=== PATIENT | female | born 1980 | race Caucasian/White ===

== ENCOUNTER 2018-01-10 12:49 | Emergency (ER) | payer OTHER ==
[2018-01-10 13:03] VITALS: RESP 18
[2018-01-10] MEDS ORDERED: DIPH,PERTUS(ACELL)TETVAC-LF 0.5 ML VIAL IM ONE (13:38)
[2018-01-10] MEDS ORDERED: RABIES VACCINE (PCEC) 2.5 UNIT KIT IM ONE (13:38)
[2018-01-10] MEDS ORDERED: RABIES IMMUNE GLOB 150 UNIT/ML 10 ML VIAL IM ONE (13:41)
[2018-01-10] MEDS ORDERED: AMOXIC-POT CLAV 875-125MG 1 EACH TAB PO STA (13:50)
--- NOTE | 2018-01-10 14:59 | ED ---
General Adult HPI - General Chief complaint: Wound/Laceration Stated complaint: CAT BITE AND SCRATCHES Time Seen by Provider: 01/10/18 13:12 Source: patient, RN notes reviewed Mode of arrival: ambulatory Limitations: no limitations - History of Present Illness Initial comments: 37-year-old female presents to the emergency department for a chief complaint of multiple scratches and bites from cats earlier this morning at about 6 AM. Patient states she attempted to break up a fight between her cat and a stray cat. Patient states she was told by her friend the Bites have a high risk of infection so she presented to the emergency department. Patient denies any other injuries. Patient is not up-to-date on tetanus in the past 5 years. Patient denies any fevers or chills. Patient denies any early signs of infection. Patient has no other complaints at this time including shortness of breath, chest pain, abdominal pain, nausea or vomiting, headache, or visual changes. - Related Data Previous Rx's Medication Instructions Recorded Amoxicillin/Potassium Clav 1 tab PO Q12HR #20 tab 01/10/18 [Augmentin 875-125 Tablet] Allergies Allergy/AdvReac Type Severity Reaction Status Date / Time No Known Allergies Allergy Verified 01/10/18 13:03 Review of Systems ROS Statement: Those systems with pertinent positive or pertinent negative responses have been documented in the HPI. ROS Other: All systems not noted in ROS Statement are negative. Past Medical History Past Medical History: Eye Disorder, GERD/Reflux, Osteoarthritis (OA), Thyroid Disorder Additional Past Medical History / Comment(s): MIGRAINES, multiple kidney stones in past, ovarian cyst, GALUCOMA, 3 BULGING DISCS.IBS,VERTIGO History of Any Multi-Drug Resistant Organisms: MRSA Date of last positivie culture/infection: 2009 MDRO Source:: SPUTUM/RESPITORY Past Surgical History: Adenoidectomy, Cholecystectomy, Hysterectomy, Orthopedic Surgery, Tonsillectomy Additional Past Surgical History / Comment(s): JAW SURGERY DONE FOR TMJ; SINUS SURGERY FOR DEVIATED SEPTUM; BUNIONECTOMY AND CADAVIER BONE GRAFTS; THYROIDECTOMY(PT STATED THYROID WAS 5 TIMES NORMAL SIZE AND WRAPPED AROUND ESOPHAGUS; OVARIAN CYST REMOVED., LASER SX RT EYE FOR GLAUCOMA, Additional Past Anesthesia/Blood Transfusion Reaction / Comment(s): CLAUSTERPHOBIA Past Psychological History: Anxiety, Depression Smoking Status: Current every day smoker Past Alcohol Use History: None Reported Past Drug Use History: Marijuana - Past Family History Mother Additional Family Medical History / Comment(s): BIPOLAR Father Family Medical History: Deep Vein Thrombosis (DVT), Hypertension General Exam Limitations: no limitations General appearance: alert, in no apparent distress Head exam: Present: atraumatic, normocephalic, normal inspection Eye exam: Present: normal appearance. Absent: PERRL, EOMI, scleral icterus, conjunctival injection ENT exam: Present: normal exam, mucous membranes moist Neck exam: Present: normal inspection, full ROM. Absent: tenderness, meningismus, lymphadenopathy Respiratory exam: Present: normal lung sounds bilaterally. Absent: respiratory distress, wheezes, rales, rhonchi, stridor Cardiovascular Exam: Present: regular rate, normal rhythm, normal heart sounds. Absent: systolic murmur, diastolic murmur, rubs, gallop, clicks Extremities exam: Present: full ROM (Full range of motion of the right hand. Minor edema over the fifth metacarpal), tenderness (Minor tenderness over scratch site), normal capillary refill (Capillary refill less than 2 seconds and radial pulse 2+), other (Sensation intact in the right upper extremity. Patient does have multiple scratches noted over the right hand and wrist. Most scratches are superficial. There is 1 scratch on the ulnar aspect of the right hand that is somewhat deeper than the rest but does not appear to need stitches at this time. No foreign bodies noted upon inspection.) Course Vital Signs 01/10/18 01/10/18 13:00 15:14 Temperature 98.3 F 97.6 F Pulse Rate 61 68 Respiratory 18 18 Rate Blood Pressure 117/76 120/68 O2 Sat by Pulse 98 98 Oximetry Medical Decision Making - Medical Decision Making 37-year-old female presents to the emergency department for a chief complaint of Bite and scratches earlier today. Patient states one of the cats was a stray. On presentation patient has multiple scratches to the right hand and wrist. There is 1 scratch on the ulnar aspect of the right hand that seems to be somewhat deeper. The other scratches are all superficial. No stitches warranted in any of the scratches. Full range of motion and neurovascular intact in the right upper extremity including hand and wrist. I did offer x- ray at this time to rule out any fractures or foreign bodies including teeth the patient refuses and states she does not think there are any teeth and her hand nor that she broke her bones. Hand was soaked and soap and water and extensively irrigated with sterile water. Patient was given a prescription for Augmentin. I did offer rabies vaccinations although educated patient that this is very unlikely and rare but patient did want rabies so was given be of appropriate indications here as well as a prescription for days 3, 7 and 14. Educated patient to return if she notices any signs of infection such as spreading redness streaking redness drainage or fever. Otherwise she is to follow up with primary care for wound recheck. Patient denies any chance of and states she has hysterectomy. Disposition Clinical Impression: Cat bite Disposition: HOME SELF-CARE Condition: Good Instructions: Animal Bite (ED) Additional Instructions: Please take Augmentin as directed. Follow instructions for rabies vaccinations. Monitor for any signs of infection such as spreading redness streaking redness drainage or fever and return to the emergency department if these or any other worsening symptoms occur. Please follow up with primary care in 1-2 days. Prescriptions: Amoxicillin/Potassium Clav [Augmentin 875-125 Tablet] 1 tab PO Q12HR #20 tab Is patient prescribed a controlled substance at d/c from ED?: No Referrals: Carla Robb MD [Primary Care Provider] - 1-2 days Time of Disposition: 14:56
[2018-01-10 15:16] VITALS: BP 120/68; PULSE 68; TEMP 97.6
== END 2018-01-10 15:14 | disposition home or self-care (01) ==
LOC: EC 12:49
DX: S60.511A Abrasion of right hand, initial encounter (principal); S60.811A Abrasion of right wrist, initial encounter; R60.0 Localized edema; F17.200 Nicotine dependence, unspecified, uncomplicated; Z86.14 Personal history of Methicillin resistant Staphylococcus aureus infection; Z90.710 Acquired absence of both cervix and uterus; Z23 Encounter for immunization; W55.01XA Bitten by cat, initial encounter; Y93.89 Activity, other specified; Y92.009 Unspecified place in unspecified non-institutional (private) residence as the place of occurrence of the external cause
CPT/HCPCS: 90375; 90471; 90675; 90715; 96372; 99283

== ENCOUNTER 2018-01-11 08:51 | Inpatient (IN) | payer OTHER ==
[2018-01-11] MEDS ORDERED: AMPICILLIN-SULBACTAM 3 GM in SODIUM CHLORIDE 0.9% 100 ML IVPB STA (09:20)
[2018-01-11] MEDS ORDERED: SODIUM CHLORIDE 0.9% 1,000 ML IV ONE (09:20)
[2018-01-11] MEDS ORDERED: KETOROLAC 30 MG/ML 1 ML VIAL IVP STA (09:52)
--- NOTE | 2018-01-11 09:57 | ED ---
Animal Bite HPI - General Chief Complaint: Animal Bite Stated Complaint: CAT SCRATCH AND BITE Time Seen by Provider: 01/11/18 09:04 Source: patient Mode of arrival: ambulatory Limitations: no limitations - History of Present Illness Initial Comments: 37-year-old female patient presents to the emergency department today for evaluation of swelling and redness to the right hand. Patient states that she was bit and scratched by a cat yesterday morning around 06 100. Patient states she was seen here last evening and did start taking Augmentin. She has had 2 doses of the Augmentin. Patient states when she woke this white she had a low- grade temperature at 99.2F and increased redness, swelling, and pain to the right hand. Patient states her pain is radiating up to her elbow. She denies any drainage from the puncture sites. Patient reports that she did have some mild nausea and an episode of diarrhea this morning as well. Patient denies any recent rash, shortness breath, chest pain, abdominal pain, back pain, numbness, tingling, dizziness, weakness, hematuria, dysuria, urinary urgency, urinary frequency, headache, visual changes, or any other complaints. - Related Data Previous Rx's Medication Instructions Recorded Amoxicillin/Potassium Clav 1 tab PO Q12HR #20 tab 01/10/18 [Augmentin 875-125 Tablet] Allergies Allergy/AdvReac Type Severity Reaction Status Date / Time No Known Allergies Allergy Verified 01/11/18 08:51 Review of Systems ROS Statement: Those systems with pertinent positive or pertinent negative responses have been documented in the HPI. ROS Other: All systems not noted in ROS Statement are negative. Past Medical History Past Medical History: Eye Disorder, GERD/Reflux, Osteoarthritis (OA), Thyroid Disorder Additional Past Medical History / Comment(s): MIGRAINES, multiple kidney stones in past, ovarian cyst, GALUCOMA, 3 BULGING DISCS.IBS,VERTIGO History of Any Multi-Drug Resistant Organisms: MRSA Date of last positivie culture/infection: 2009 MDRO Source:: SPUTUM/RESPITORY Past Surgical History: Adenoidectomy, Cholecystectomy, Hysterectomy, Orthopedic Surgery, Tonsillectomy Additional Past Surgical History / Comment(s): JAW SURGERY DONE FOR TMJ; SINUS SURGERY FOR DEVIATED SEPTUM; BUNIONECTOMY AND CADAVIER BONE GRAFTS; THYROIDECTOMY(PT STATED THYROID WAS 5 TIMES NORMAL SIZE AND WRAPPED AROUND ESOPHAGUS; OVARIAN CYST REMOVED., LASER SX RT EYE FOR GLAUCOMA, Additional Past Anesthesia/Blood Transfusion Reaction / Comment(s): CLAUSTERPHOBIA Past Psychological History: Anxiety, Depression Smoking Status: Current every day smoker Past Alcohol Use History: None Reported Past Drug Use History: Marijuana - Past Family History Mother Additional Family Medical History / Comment(s): BIPOLAR Father Family Medical History: Deep Vein Thrombosis (DVT), Hypertension General Exam Limitations: no limitations General appearance: alert, in no apparent distress, other (This is a well- developed, well-nourished adult female patient in no acute distress. Vital signs upon presentation are temperature 98.6F, pulse 59, respirations 18, blood pressure 120/84, pulse ox 99% on room air.) Eye exam: Present: normal appearance, PERRL, EOMI. Absent: scleral icterus, conjunctival injection, periorbital swelling ENT exam: Present: normal exam, normal oropharynx, mucous membranes moist Respiratory exam: Present: normal lung sounds bilaterally. Absent: respiratory distress, wheezes, rales, rhonchi, stridor Cardiovascular Exam: Present: regular rate, normal rhythm, normal heart sounds. Absent: systolic murmur, diastolic murmur, rubs, gallop, clicks Extremities exam: Present: full ROM, tenderness (Over the dorsal aspect of the right hand), normal capillary refill, other (Patient has edema and erythema noted over the dorsal aspect of the right hand extending up onto the wrist. There is no evidence of lymphangitis. Radial pulses 2+ and equal bilaterally. Remainder of skin is pink, warm, and dry. Cap refills less than 3 seconds. No evidence of Abscess.). Absent: normal inspection, pedal edema, joint swelling, calf tenderness Neurological exam: Present: alert, oriented X3, CN II-XII intact Psychiatric exam: Present: normal affect, normal mood Skin exam: Present: warm, dry, intact, normal color. Absent: rash Course Vital Signs 01/11/18 01/11/18 01/11/18 08:51 10:09 10:50 Temperature 98.6 F 98.7 F Pulse Rate 59 L 50 L 54 L Respiratory 18 18 16 Rate Blood Pressure 120/84 127/80 145/77 O2 Sat by Pulse 99 100 98 Oximetry 01/11/18 11:30 Temperature Pulse Rate 63 Respiratory 20 Rate Blood Pressure 120/69 O2 Sat by Pulse 99 Oximetry Medical Decision Making - Medical Decision Making 37-year-old female patient presented to the emergency department today for evaluation of increasing swelling and redness to the dorsal aspect of the right hand and wrist related to cat bite injury. Physical examination did reveal swelling and erythema to the dorsal aspect of the right hand extending up onto the wrist. Patient is also complaining of right elbow and arm pain. Vital signs at this time are stable. My attending Dr. Denny was in to see patient. Case was discussed with Dr. Caal from orthopedics and Dr. Hathaway from [facility], [place]. Patient will be admitted. Unasyn started. Pain management provided. - Lab Data Result diagrams: 01/11/18 09:47 01/11/18 09:47 Lab Results 01/11/18 01/11/18 01/11/18 Range/Units 09:47 09:47 09:47 WBC 10.2 (3.8-10.6) k/uL RBC 4.72 (3.80-5.40) m/uL Hgb 14.9 (11.4-16.0) gm/dL Hct 44.7 (34.0-46.0) % MCV 94.8 (80.0-100.0) fL MCH 31.7 (25.0-35.0) pg MCHC 33.4 (31.0-37.0) g/dL RDW 12.4 (11.5-15.5) % Plt Count 200 (150-450) k/uL Neutrophils % 69 % Lymphocytes % 23 % Monocytes % 5 % Eosinophils % 1 % Basophils % 0 % Neutrophils # 7.1 (1.3-7.7) k/uL Lymphocytes # 2.3 (1.0-4.8) k/uL Monocytes # 0.5 (0-1.0) k/uL Eosinophils # 0.1 (0-0.7) k/uL Basophils # 0.0 (0-0.2) k/uL Sodium 141 (137-145) mmol/L Potassium 4.4 (3.5-5.1) mmol/L Chloride 107 (98-107) mmol/L Carbon Dioxide 24 (22-30) mmol/L Anion Gap 10 mmol/L BUN 6 L (7-17) mg/dL Creatinine 0.70 (0.52-1.04) mg/dL Est GFR (CKD-EPI)AfAm >90 (>60 ml/min/1.73 sqM) Est GFR (CKD-EPI)NonAf >90 (>60 ml/min/1.73 sqM) Glucose 83 (74-99) mg/dL Plasma Lactic Acid Mathew 0.8 (0.7-2.0) mmol/L Calcium 9.8 (8.4-10.2) mg/dL Total Bilirubin 0.6 (0.2-1.3) mg/dL AST 22 (14-36) U/L ALT 22 (9-52) U/L Alkaline Phosphatase 54 (38-126) U/L Total Protein 7.7 (6.3-8.2) g/dL Albumin 4.6 (3.5-5.0) g/dL - Radiology Data Radiology results: report reviewed, image reviewed 3 views of the right hand are obtained. There is no fracture or dislocation noted. No radiopaque foreign body. Impression by Dr. Mora shows no acute osseous lesion. Reveiwed image, no subcutaneous gas noted. Disposition Clinical Impression: Cat bite involving extremity, Cellulitis Disposition: ADMITTED IP TO THIS [facility] Condition: Serious Referrals: Carla Robb MD [Primary Care Provider] - 1-2 days Decision to Admit Reason: Admit from EC Decision Date: 01/11/18 Decision Time: 12:11
[2018-01-11 10:01] LABS: Basophils % (A) 0 %; Eosinophils # (A) 0.1 k/uL (0-0.7); Eosinophils % (A) 1 %; HCT 44.7 % (34.0-46.0); HGB 14.9 gm/dL (11.4-16.0); Lymphocytes # (A) 2.3 k/uL (1.0-4.8); Lymphocytes % (A) 23 %; MCH 31.7 pg (25.0-35.0); MCHC 33.4 g/dL (31.0-37.0); MCV 94.8 fL (80.0-100.0); Mean Platelet Volume 7.2; Monocytes # (A) 0.5 k/uL (0-1.0); Monocytes % (A) 5 %; Neutrophils # (A) 7.1 k/uL (1.3-7.7); Neutrophils % (A) 69 %; Platelet Count 200 k/uL (150-450); RBC 4.72 m/uL (3.80-5.40); RDW 12.4 % (11.5-15.5); WBC 10.2 k/uL (3.8-10.6)
[2018-01-11] MEDS: AMPICILLIN-SULBACTAM 3 GM in SODIUM CHLORIDE 0.9% 100 ML IVPB SCH ×3 (10:05→23:41)
[2018-01-11 10:13] LABS: ALT 22 U/L (9-52); AST 22 U/L (14-36); Albumin 4.6 g/dL (3.5-5.0); Alkaline Phosphatase 54 U/L (38-126); Anion Gap 10 mmol/L; Blood Urea Nitrogen 6 mg/dL (7-17); Calcium 9.8 mg/dL (8.4-10.2); Carbon Dioxide 24 mmol/L (22-30); Chloride 107 mmol/L (98-107); Glucose 83 mg/dL (74-99); Potassium 4.4 mmol/L (3.5-5.1); Sodium 141 mmol/L (137-145); Total Bilirubin 0.6 mg/dL (0.2-1.3); Total Protein 7.7 g/dL (6.3-8.2)
--- NOTE | 2018-01-11 11:13 | XR ---
EXAMINATION TYPE: XR hand complete RT , 3 VIEWS DATE OF EXAM ORDERED: 01/11/2018 HISTORY: Pain. COMPARISON: None. FINDINGS: No fracture, dislocation or radiopaque foreign body is seen. IMPRESSION: NO ACUTE OSSEOUS LESION.
[2018-01-11] MEDS ORDERED: ONDANSETRON 4 MG/2 ML VIAL IVP STA (11:26)
[2018-01-11] MEDS ORDERED: MORPHINE SULFATE 4 MG/ML SYRINGE IVP STA (11:26)
[2018-01-11] MEDS ORDERED: HYDROcodone/APAP 5-325MG 1 EACH TAB PO PRN (12:03)
[2018-01-11] MEDS ORDERED: ACETAMINOPHEN TAB 325 MG TAB PO PRN (12:03)
[2018-01-11] MEDS ORDERED: NALOXONE 0.4 MG/ML 1 ML VIAL IV PRN ×2 (12:03→13:33)
[2018-01-11] MEDS: SODIUM CHLORIDE 0.9% 1,000 ML IV SCH (12:41)
[2018-01-11 13:40] VITALS: BMI 22.8
[2018-01-11] MEDS ORDERED: MAG HYDROX/AL HYDROX/SIMETH 30 ML CUP PO PRN (13:41)
[2018-01-11] MEDS ORDERED: MELATONIN 3 MG TABLET PO PRN (13:41)
[2018-01-11] MEDS ORDERED: IBUPROFEN 400 MG TAB PO PRN (13:41)
--- NOTE | 2018-01-11 14:27 | P.HPIM ---
History of Present Illness H&P Date: 01/11/18 Chief Complaint: Right hand worsening swelling and redness from cat bite since yesterday. 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 Patient was seen yesterday in the afternoon after she sustained a cat bite in her right hand from stray cat around 6 AM yesterday morning. Patient was evaluated in the emergency department x-rays were done and she was given Augmentin and sent home. Patient stated that she took 2 doses of antibiotics and when she woke up this morning her hand was more swollen, painful, erythematous and she was running low-grade fever. Patient also reported that she hadn't some chills in the morning but no diaphoresis. Patient was brought again in the emergency department and was evaluated by the ED physician and x-ray of the hand was done which was reported as no gas under the skin and soft tissues and patient was referred to hand/ orthopedic surgeon who recommended admitting under medical service and consulting infectious disease speciality and also will see patient in the morning. While patient was waiting for admission in the emergency department she started complaining of epigastric pain which was sharp, sudden, 10/10 in intensity, nonradiating, not associated with diaphoresis, palpitation, dizziness or any other cardiac symptoms. Stat EKG was done showed sinus rhythm with bradycardia and no acute ST-T wave changes. Patient was given first dose of IV Unasyn 3 g and was admitted for IV antibiotic management under hospitalist service. Patient denies headache, dizziness, lightheadedness, nausea, vomiting and denies rest of the review of system. Patient reports that she had some fever and chills early this morning but at the time of interview patient denies fevers/chills. Review of Systems 12 points systematic review of system was essentially negative other than mentioned in history of present illness. Past Medical History Past Medical History: Eye Disorder, GERD/Reflux, Osteoarthritis (OA), Thyroid Disorder Additional Past Medical History / Comment(s): MIGRAINES, multiple kidney stones in past, ovarian cyst, GLAUCOMA, 3 BULGING DISCS.IBS,VERTIGO History of Any Multi-Drug Resistant Organisms: None Reported, MRSA Date of last positivie culture/infection: 2009 MDRO Source:: SPUTUM/RESPITORY Past Surgical History: Adenoidectomy, Cholecystectomy, Hysterectomy, Orthopedic Surgery, Tonsillectomy, Tubal Ligation Additional Past Surgical History / Comment(s): JAW SURGERY DONE FOR TMJ; SINUS SURGERY FOR DEVIATED SEPTUM; BUNIONECTOMY AND CADAVIER BONE GRAFTS; THYROIDECTOMY(PT STATED THYROID WAS 5 TIMES NORMAL SIZE AND WRAPPED AROUND ESOPHAGUS; OVARIAN CYST REMOVED., LASER SX RT EYE FOR GLAUCOMA, Additional Past Anesthesia/Blood Transfusion Reaction / Comment(s): CLAUSTERPHOBIA Past Psychological History: Anxiety, Depression Additional Psychological History / Comment(s): PT LIVES AT HOME WITH HER AND 3 DAUGHTERS. PT IS INDEPENDANT. Smoking Status: Current every day smoker Past Alcohol Use History: None Reported Additional Past Alcohol Use History / Comment(s): PT HAS SMOKED ON AND OFF SINCE AGE 10,CURRENTLY SMOKING 1.5 PPD Past Drug Use History: Marijuana Additional Drug Use History / Comment(s): OCC USES MARIJUANA - Past Family History Mother Additional Family Medical History / Comment(s): BIPOLAR Father Family Medical History: AFIB, Deep Vein Thrombosis (DVT), Eye Disorder, Hypertension Medications and Allergies Home Medications Medication Instructions Recorded Confirmed Type Escitalopram [Lexapro] 30 mg PO DAILY 01/11/18 01/11/18 History LORazepam [Ativan] 0.5 mg PO DAILY PRN 01/11/18 01/11/18 History Levothyroxine Sodium [Synthroid] 150 mcg PO DAILY 01/11/18 01/11/18 History lamoTRIgine [LaMICtal] 100 mg PO BID 01/11/18 01/11/18 History Allergies Allergy/AdvReac Type Severity Reaction Status Date / Time No Known Allergies Allergy Verified 01/11/18 12:20 Physical Exam Vitals: Vital Signs Temp Pulse Pulse Resp BP BP Pulse Ox 01/11/18 12:35 98.6 F 48 L 20 129/73 99 01/11/18 12:26 96.2 F L 50 L 16 114/69 98 01/11/18 11:30 63 20 120/69 99 01/11/18 10:50 98.7 F 54 L 16 145/77 98 01/11/18 10:09 50 L 18 127/80 100 01/11/18 08:51 98.6 F 59 L 18 120/84 99 Intake and Output 0801/11/18 01/11/18 22:59 06:59 14:59 Other: Weight 64.41 kg - Constitutional General appearance: average body habitus, cooperative, mild distress - EENT Eyes: EOMI, normal appearance - Neck Neck: no lymphadenopathy, normal ROM, no rigidity, no stridor - Respiratory Respiratory: bilateral: CTA, negative: rales, rhonchi, wheezing - Cardiovascular Rhythm: regular Heart sounds: normal: S1, S2 Abnormal Heart Sounds: no systolic murmur, no diastolic murmur, no rub, no S3 Gallop, no S4 Gallop - Gastrointestinal Epigastric tenderness without rigidity, distention, rebound tenderness. General gastrointestinal: no distended, normal bowel sounds, no organomegaly, no rigid, soft, tenderness - Genitourinary Deferred - Neurologic Neurologic: CNII-XII intact - Psychiatric Psychiatric: A&O x's 3, appropriate affect, intact judgment & insight Results CBC & Chem 7: 01/11/18 09:47 01/11/18 09:47 Labs: Abnormal Lab Results - Last 24 Hours (Table) 01/11/18 Range/Units 09:47 BUN 6 L (7-17) mg/dL Comments: Right hand x-ray report was reviewed. Thrombosis Risk Factor Assmnt - DVT/VTE Prophylaxis DVT/VTE Prophylaxis: Pharmacologic Prophylaxis ordered, Low risk, early ambulation encouraged - Choose All That Apply Any of the Below Risk Factors Present?: No Other Risk Factors: No Other congenital or acquired thrombophilia - If yes, enter type in comment: No Thrombosis Risk Factor Assessment Level: Very Low Risk Assessment and Plan (1) Cat bite involving extremity Narrative/Plan: Elevate right hand with couple pillows, cold compresses to decrease swelling and pain control. Current Visit: Yes Status: Acute Priority: High Onset Date: ~01/10/18 Code(s): DZP0802 - SNOMED Code(s): 190593886 (2) Cellulitis Narrative/Plan: Patient was given first dose of Unasyn 3 g in the emergency department today we will continue as every 6 hours IV piggyback and I will consult infectious disease for further guidance with the management of cat Bite. Current Visit: Yes Status: Acute Priority: High Onset Date: ~01/10/18 Code(s): L03.90 - CELLULITIS, UNSPECIFIED SNOMED Code(s): 712943999 (3) Abdominal pain in female patient Narrative/Plan: Patient does have history of gastroesophageal reflux disease and with the acute episode of stress from cat bite and cellulitis of the right hand could have exacerbated patient's gastritis/acid G causing abdominal pain. Patient will be given MiraLAX now and on as-needed basis to sooth the stomach acutely and she will be started on IV Protonix now and once better will be changed to oral Protonix daily to control the acidity and gastritis symptoms. Current Visit: No Status: Acute Code(s): R10.9 - UNSPECIFIED ABDOMINAL PAIN SNOMED Code(s): 16606949 (4) Hypothyroidism Narrative/Plan: Patient has history of Abel thyroiditis and status post thyroidectomy and she will be continued on 150 g of levothyroxine daily. Current Visit: Yes Status: Acute Code(s): E03.9 - HYPOTHYROIDISM, UNSPECIFIED SNOMED Code(s): 49513536 (5) Depression Narrative/Plan: Patient depression is well controlled but anxiety is an issue at this point I will continue Lexapro 30 mg daily and Ativan 0.5 mg daily on as needed basis and if indicated down the road we will consult mental health was subsequently management. Current Visit: Yes Status: Acute Code(s): F32.9 - MAJOR DEPRESSIVE DISORDER , SINGLE EPISODE, UNSPECIFIED SNOMED Code(s): 54296413 Plan: Patient will be admitted to the medical service and orthopedics and infectious disease team will be consulted and she will be in the hospital for IV antibiotics for next 24-48 hours and once improvement is noted she will be changed to oral antibiotics and will be discharged subsequently. Time with Patient: Greater than 30 (Time spent in counseling regarding quitting smoking and marijuana abuse.)
[2018-01-11] MEDS: NICOTINE 21MG/24HR PATCH TRANSDERM SCH ×2 (14:54→20:10)
[2018-01-11] MEDS: PANTOPRAZOLE 40 MG/10 ML VIAL IV SCH (14:55)
[2018-01-11] MEDS: HEPARIN SODIUM,PORCINE 5,000 UNIT/ML 1 ML VIAL SQ SCH ×2 (14:56→23:41)
[2018-01-11] MEDS: MORPHINE SULFATE 2 MG/ML SYRINGE IVP PRN ×3 (15:26→23:40)
--- NOTE | 2018-01-11 17:22 | P.CNOR ---
History of Present Illness - [facility] Consult date: 01/11/18 Consult reason: other (Right hand pain status post cat bite) History of present illness: The patient is a 37-year-old right-hand dominant female who presents after injury yesterday morning. She was trying to break up a fight between her cat and another and was bitten. Initially she was seen yesterday afternoon in the emergency room, and given a tetanus update, rabies shots, and oral antibiotics. Subsequently she went home and woke up this morning with increasing pain, and some subjective chills. 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 Discovered:: 2009 MDRO Source:: SPUTUM/RESPITORY Past Surgical History: Adenoidectomy, Cholecystectomy, Hysterectomy, Orthopedic Surgery, Tonsillectomy, Tubal Ligation Additional Past Surgical History / Comment(s): JAW SURGERY DONE FOR TMJ; SINUS SURGERY FOR DEVIATED SEPTUM; BUNIONECTOMY AND CADAVIER BONE GRAFTS; THYROIDECTOMY(PT STATED THYROID WAS 5 TIMES NORMAL SIZE AND WRAPPED AROUND ESOPHAGUS; OVARIAN CYST REMOVED., LASER SX RT EYE FOR GLAUCOMA, Additional Past Anesthesia/Blood Transfusion Reaction / Comm: CLAUSTERPHOBIA Past Psychological History: Anxiety, Depression Additional Psychological History / Comment(s): PT LIVES AT HOME WITH HER AND 3 DAUGHTERS. PT IS INDEPENDANT. Smoking Status: Current every day smoker Past Alcohol Use History: None Reported Additional Past Alcohol Use History / Comment(s): PT HAS SMOKED ON AND OFF SINCE AGE 10,CURRENTLY SMOKING 1.5 PPD Past Drug Use History: Marijuana Additional Drug Use History / Comment(s): OCC USES MARIJUANA - Past Family History Mother Additional Family Medical History / Comment(s): BIPOLAR Father Family Medical History: AFIB, Deep Vein Thrombosis (DVT), Eye Disorder, Hypertension Medications and Allergies Home Medications Medication Instructions Recorded Confirmed Type Escitalopram [Lexapro] 30 mg PO DAILY 01/11/18 01/11/18 History LORazepam [Ativan] 0.5 mg PO DAILY PRN 01/11/18 01/11/18 History Levothyroxine Sodium [Synthroid] 150 mcg PO DAILY 01/11/18 01/11/18 History lamoTRIgine [LaMICtal] 100 mg PO BID 01/11/18 01/11/18 History Allergies Allergy/AdvReac Type Severity Reaction Status Date / Time No Known Allergies Allergy Verified 01/11/18 12:20 Physical Examination - Wrist & Hand right Location of pain: dorsal hand Symptoms: dorsal hand swelling, hand stiffness Appearance: hand erythema, puncture Wound/scarring location: Small dorsal puncture wound right hand over the fourth proximal metacarpal Tenderness with palpation: dorsal hand (Moderate digital stiffness, no palmar tenderness, no definite palpable abscess ) Results - Labs Labs: Abnormal Lab Results - Last 24 Hours (Table) 01/11/18 Range/Units 09:47 BUN 6 L (7-17) mg/dL H & H 01/11/18 Range/Units 09:47 Hgb 14.9 (11.4-16.0) gm/dL Hct 44.7 (34.0-46.0) % Result Diagrams: 01/11/18 09:47 01/11/18 09:47 - Diagnostic results Wrist/Hand x-ray: report reviewed (No definite osseous abnormality or radiopaque foreign body) Assessment and Plan Assessment: Right dorsal hand cat bite with localized cellulitis (1) Cat bite involving extremity Current Visit: Yes Status: Acute Priority: High Onset Date: ~01/10/18 Code(s): [id number] - SNOMED Code(s): 029360632 Plan: I talked to the patient regarding her condition and treatment options. At this point I recommend continuation of IV antibiotics covering pasteurella in addition to warm soaks 3 times daily. We will keep her nothing by mouth after midnight and reevaluate in the morning to consider surgical intervention if not improving. Time with Patient: Greater than 30
[2018-01-11] MEDS: ONDANSETRON 4 MG/2 ML VIAL IVP PRN (18:13)
[2018-01-11] MEDS: lamoTRIgine 100 MG TAB PO SCH (20:11)
--- NOTE | 2018-01-11 22:28 | CONS ---
CONSULTATION DATE OF SERVICE: 01/11/2018. REASON FOR REQUEST: Right hand cat bite cellulitis. HISTORY OF PRESENT ILLNESS: The patient is a 37-year-old female who did have a bite on her right hand by cat yesterday morning around 6 when she was trying to break up a fight between her cat and a stray cat outside. The patient is not sure if it was her own cat or the stray cat bit her. With these symptoms, the patient presented to the [facility] ER yesterday. The patient was evaluated by the ER physician. The patient did have x-rays of the right hand which did not show any bony changes. She was discharged home on oral Augmentin. The patient did take her antibiotic yesterday and she woke up this morning with significant swelling, redness and pain to the right hand area. Pain described to more of a throbbing in nature, almost 6/10, and no radiation. That has been getting worse since morning. The patient denies high-grade fever. However, she did have some chills. With these present symptoms, the patient did present back to the [facility] ER. The patient has been reevaluated by the ER physician. A chest x-ray was done which shows no acute osseous lesion. The patient has been started on Unasyn 3 g q.6h and admitted hospital. Infectious Disease was consulted for further recommendation regarding antibiotic therapy. REVIEW OF SYSTEMS: Constitutional: Positive for weakness. She has spiked no high grade fever. Eyes: No complaint. ENT no complaint. Respiratory: No complaint. Cardiovascular: No complaint. Genitourinary no complaint. Gastrointestinal: No complaint. Musculoskeletal as per HPI. Integumentary as per HPI. Psychological no complaint. Endocrine no complaint. Neurologic no complaint. PAST MEDICAL HISTORY: Gastroesophageal reflux disease, osteoarthritis, hypothyroidism, migraine headaches, kidney stones and glaucoma, ovarian cyst. PAST SURGICAL HISTORY: Adenoidectomy, cholecystectomy, hysterectomy, tonsillectomy tubal ligation, jaw surgery. SOCIAL HISTORY: Current everyday smoker. Did admit to marijuana use. FAMILY HISTORY: Mother with history of bipolar disorder. Father history of DVT and atrial fibrillation. ALLERGIES: No known drug allergies. MEDICATION: Medications include the patient is currently on Tylenol, Maalox, Unasyn 3 g q.6h, Lexapro, heparin, Motrin, Toradol, Lamictal, Synthroid, melatonin, morphine sulfate, Narcan, nicotine patch, Protonix. EXAMINATION: Blood pressure is 103/58 with a pulse of 50, temperature 97.9. She is 98% on room air. General description is a middle aged female lying in bed in no distress. No tachypnea or accessory muscle of respiration use. HEENT: Shows no pallor or scleral icterus. Oral mucosa membranes are dry. No pharyngeal erythema or thrush. Neck trachea central. No thyromegaly. Lungs are unlabored breathing. Clear to auscultation anteriorly. No wheeze or crackles. Heart S1, S2. Regular rate and rhythm. ABDOMEN: Soft, no tenderness. No guarding or rigidity. Extremities are no edema of the feet. Examination of the right hand on the dorsum is swollen, slightly red, warm to touch and tender. No fluctuation induration. Neurological patient is awake, alert, oriented x3. Mood and affect normal. LABS: Hemoglobin is 14.8, white count 10.2 with a BUN of 6, creatinine 0.70. X-rays with no bony changes. Blood culture so far pending. DIAGNOSTIC IMPRESSION AND PLAN: Patient with right hand cat bite cellulitis that has failed outpatient oral Augmentin therapy, more likely from the disease likely organism need to cover will be the oral cintia of the cat including pasteurella and related gram negative both aerobes and anaerobes. PLAN: 1. Unasyn 3 g every 6 hours to continue for another 24-48 hours. 2. Ice to the right hand. 3. Depending on the clinical response as well culture, we will adjust the medication further if needed. Thank you for this consultation. Will follow this patient along with you. MMODL / IJN: [id number] /
[2018-01-12] MEDS: KETOROLAC 30 MG/ML 1 ML VIAL IVP PRN ×3 (01:17→15:46)
[2018-01-12] MEDS: MORPHINE SULFATE 2 MG/ML SYRINGE IVP PRN ×5 (03:41→21:44)
[2018-01-12] MEDS: SODIUM CHLORIDE 0.9% 1,000 ML IV SCH ×3 (03:48→18:02)
[2018-01-12] MEDS: LEVOTHYROXINE 75 MCG TAB PO SCH (06:08)
[2018-01-12] MEDS: AMPICILLIN-SULBACTAM 3 GM in SODIUM CHLORIDE 0.9% 100 ML IVPB SCH ×3 (06:08→18:02)
[2018-01-12 07:09] LABS: Basophils % (A) 0 %; Eosinophils # (A) 0.1 k/uL (0-0.7); Eosinophils % (A) 2 %; Lymphocytes # (A) 2.3 k/uL (1.0-4.8); Lymphocytes % (A) 41 %; MCH 32.5 pg (25.0-35.0); MCHC 33.4 g/dL (31.0-37.0); Mean Platelet Volume 7.6; Monocytes # (A) 0.4 k/uL (0-1.0); Monocytes % (A) 7 %; Neutrophils # (A) 2.8 k/uL (1.3-7.7); Neutrophils % (A) 49 %; Platelet Count 170 k/uL (150-450); RBC 4.01 m/uL (3.80-5.40); RDW 12.5 % (11.5-15.5); WBC 5.7 k/uL (3.8-10.6)
[2018-01-12 07:26] LABS: Albumin 3.2 g/dL (3.5-5.0); Anion Gap 3 mmol/L; Calcium 8.4 mg/dL (8.4-10.2); Carbon Dioxide 26 mmol/L (22-30); Chloride 111 mmol/L (98-107); Glucose 80 mg/dL (74-99); Sodium 140 mmol/L (137-145); Total Bilirubin 0.9 mg/dL (0.2-1.3); Total Protein 5.8 g/dL (6.3-8.2)
[2018-01-12 07:34] LABS: ALT 132 U/L (9-52); AST 125 U/L (14-36); Alkaline Phosphatase 71 U/L (38-126); Blood Urea Nitrogen 5 mg/dL (7-17); Potassium 4.3 mmol/L (3.5-5.1)
[2018-01-12] MEDS: lamoTRIgine 100 MG TAB PO SCH ×2 (08:55→21:30)
[2018-01-12] MEDS: ESCITALOPRAM 10 MG TAB PO SCH (08:55)
[2018-01-12] MEDS: HEPARIN SODIUM,PORCINE 5,000 UNIT/ML 1 ML VIAL SQ SCH ×2 (08:55→15:49)
[2018-01-12] MEDS: PANTOPRAZOLE 40 MG/10 ML VIAL IV SCH (08:55)
--- NOTE | 2018-01-12 09:36 | P.PN ---
Progress Note - Text Progress Note Date: 01/12/18 S: The patient notes moderate right hand pain. She denies fevers or chills. O: Afebrile, vital signs stable Moderate swelling right hand dorsum, diminishing erythema Moderate digital stiffness right hand Nontender flexor surface A/P: Status post cat bite right hand with cellulitis Continue IV antibiotics per infectious disease Warm soaks 3 times daily
--- NOTE | 2018-01-12 11:20 | P.PN ---
Subjective Progress Note Date: 01/12/18 Patient reports that she is feeling better her pain is better controlled and her epigastric pain is also resolved. She stated that she used to take Protonix in the past but quit taking for quite some time. Patient is elevating her right arm and hand and was seen by the infectious disease and orthopedic team. Nurses reported as per dictation from infectious disease specialist to continue Unasyn. And patient is nothing by mouth for now for reevaluation by orthopedics Dr. aCal if she needs any surgical intervention or not. Dr. Caal reevaluated today and recommended continue current management and no surgical intervention indicated at this point in time. Overall patient condition is getting better patient denies fever/chills and denies rest of the review of system. Nurses reported no other issues with her. Objective - Vital Signs Vital signs: Vital Signs Temp 97.9 F 01/12/18 06:00 Pulse 88 01/12/18 06:00 Resp 16 01/12/18 06:00 BP 111/67 01/12/18 06:00 Pulse Ox 93 L 01/12/18 06:00 Intake & Output 01/11/18 01/12/18 01/12/18 18:59 06:59 18:59 Intake Total 1420 900 Balance 1420 900 Weight 64.41 kg Intake: Intake, IV Titration 700 900 Amount Ampicillin-Sulbactam 3 gm 100 In Sodium Chloride 0.9% 100 ml @ 100 mls/hr IVPB Q6HR [facility] Rx#:[id number] Sodium Chloride 0.9% 1, 600 900 000 ml @ 75 mls/hr IV . [id number] [facility] Rx#:[id number] Oral 720 Other: Voiding Method Toilet Toilet # Voids 2 2 - Constitutional General appearance: Present: average body habitus, cooperative, no acute distress - EENT Eyes: Present: EOMI, normal appearance - Respiratory Respiratory: bilateral: CTA, negative: rales, rhonchi, wheezing - Cardiovascular Rhythm: regular Heart sounds: normal: S1, S2 Abnormal Heart Sounds: Absent: systolic murmur, S3 Gallop, S4 Gallop - Gastrointestinal General gastrointestinal: Present: normal bowel sounds, soft. Absent: distended , organomegaly, tenderness - Neurologic Neurologic: Present: CNII-XII intact, focal deficits - Musculoskeletal Musculoskeletal Comment(s): Patient is mild tenderness of the right medial condylar and right axillary lymph nodes. No evidence of lymphangitis on the right forearm noted, swelling of the right also hand is improving as compared to yesterday along with improvement in erythema/warmth but local tenderness persist without fluctuation. - Psychiatric Psychiatric: Present: A&O x's 3, appropriate affect, intact judgment & insight - Labs CBC & Chem 7: 01/12/18 06:45 01/12/18 06:45 Labs: Abnormal Lab Results - Last 24 Hours (Table) 01/12/18 Range/Units 06:45 Chloride 111 H (98-107) mmol/L BUN 5 L (7-17) mg/dL AST 125 H (14-36) U/L ALT 132 H (9-52) U/L Total Protein 5.8 L (6.3-8.2) g/dL Albumin 3.2 L (3.5-5.0) g/dL Assessment and Plan (1) Cat bite involving extremity Narrative/Plan: Overall clinical condition is improving on current management, infectious disease and orthopedic input and recommendations appreciated, we will continue current management for now. Current Visit: Yes Status: Acute Priority: High Onset Date: ~01/10/18 Code(s): LLA2588 - SNOMED Code(s): 194889297 (2) Cellulitis Narrative/Plan: Patient is on Unasyn for [id number] cellulitis and oral condition is slowly improving, as per recommendation from Dr. Singh we will continue Unasyn. Current Visit: Yes Status: Acute Priority: High Onset Date: ~01/10/18 Code(s): L03.90 - CELLULITIS, UNSPECIFIED SNOMED Code(s): 260453473 (3) Abdominal pain in female patient Narrative/Plan: Most likely patient abdominal pain was gastritis related and she is doing much better after starting Protonix and will continue as oral form. Current Visit: No Status: Acute Code(s): R10.9 - UNSPECIFIED ABDOMINAL PAIN SNOMED Code(s): 06348717 (4) Hypothyroidism Narrative/Plan: Currently patient is stable and we will continue home dose of levothyroxine, there is no clinical indication to check TSH/FT4 at this point in time. Current Visit: Yes Status: Acute Code(s): E03.9 - HYPOTHYROIDISM, UNSPECIFIED SNOMED Code(s): 15149901 (5) Depression Narrative/Plan: Stable on current management with continued for now. Current Visit: Yes Status: Acute Code(s): F32.9 - MAJOR DEPRESSIVE DISORDER , SINGLE EPISODE, UNSPECIFIED SNOMED Code(s): 50568673 Plan: Patient's overall condition is improving although it is slow improvement but patient is feeling better and her hand swelling is improving. Patient current management will be continued and she'll be kept in the hospital for next 24-48 hours and reevaluated for possible discharge on oral antibiotics. Time with Patient: Less than 30
[2018-01-12] MEDS: ONDANSETRON 4 MG/2 ML VIAL IVP PRN (12:56)
[2018-01-12 16:27] VITALS: RESP 16
--- NOTE | 2018-01-12 21:30 | PN ---
PROGRESS NOTE DATE OF SERVICE: 01/12/2018. REASON FOR FOLLOWUP: Right hand cat bit cellulitis. INTERVAL HISTORY: The patient is currently afebrile. She is breathing comfortably. She did have an episode of vomiting. The right hand pain and swelling has slightly decreased. Denies any chest pain or shortness of breath or cough. No abdominal pain. No diarrhea. EXAMINATION: Blood pressure 115/71 with a pulse of 51, temperature 98.1. She is 98% on room air. General description is a middle aged female, lying in bed in no distress. Respiratory system: Unlabored breathing. Clear to auscultation anteriorly. Heart S1, S2 regular rate and rhythm. Abdomen is soft, no tenderness. Right hand swelling and pain has slightly decreased, slightly tender to touch. LABS: Hemoglobin is 13, white count 5.7, creatinine 0.65. Blood culture so far negative. DIAGNOSTIC IMPRESSION AND PLAN: Patient with right hand cat bite cellulitis failing outpatient oral antibiotic therapy. Patient at this time to continue on Unasyn once her GI symptoms resolves and overall improvement and she will finish therapy with oral antibiotics. Continue supportive care. MMODL / IJN: [id number] /
[2018-01-13] MEDS: KETOROLAC 30 MG/ML 1 ML VIAL IVP PRN (00:18)
[2018-01-13] MEDS: ONDANSETRON 4 MG/2 ML VIAL IVP PRN (00:34)
[2018-01-13] MEDS: MORPHINE SULFATE 2 MG/ML SYRINGE IVP PRN (03:21)
[2018-01-13] MEDS: AMPICILLIN-SULBACTAM 3 GM in SODIUM CHLORIDE 0.9% 100 ML IVPB SCH ×4 (06:10→11:46)
[2018-01-13] MEDS: LEVOTHYROXINE 75 MCG TAB PO SCH (06:11)
[2018-01-13] MEDS: NICOTINE 21MG/24HR PATCH TRANSDERM SCH (08:20)
[2018-01-13] MEDS: lamoTRIgine 100 MG TAB PO SCH (08:20)
[2018-01-13] MEDS: ESCITALOPRAM 10 MG TAB PO SCH (08:20)
[2018-01-13] MEDS: PANTOPRAZOLE 40 MG/10 ML VIAL IV SCH (08:21)
[2018-01-13] MEDS: HEPARIN SODIUM,PORCINE 5,000 UNIT/ML 1 ML VIAL SQ SCH ×2 (08:29)
--- NOTE | 2018-01-13 10:09 | P.PN ---
Subjective Progress Note Date: 01/13/18 Principal diagnosis: Cellulitis right hand, s/p cat bite right hand Patient seen today resting in hospital bed, she appears comfortable. Her pain and swelling have improved. She did vomit last night, this was right after receiving IV morphine. She denies chest pain, fever or chills. Objective - Vital Signs Vital signs: Vital Signs Temp 98.9 F 01/13/18 09:16 Pulse 41 L 01/13/18 09:16 Resp 16 01/13/18 09:16 BP 114/75 01/13/18 09:16 Pulse Ox 100 01/13/18 09:16 Intake & Output 01/12/18 01/13/18 01/13/18 18:59 06:59 18:59 Intake Total 800 Balance 800 Intake: Intake, IV Titration 800 Amount Ampicillin-Sulbactam 3 gm 200 In Sodium Chloride 0.9% 100 ml @ 100 mls/hr IVPB Q6HR COUNT INCLUDES THE [facility] Rx#:[id number] Sodium Chloride 0.9% 1, 600 000 ml @ 75 mls/hr IV . [id number] COUNT INCLUDES THE [facility] Rx#:[id number] Other: Voiding Method Toilet # Voids 3 1 - Exam Right hand: Swelling and erythema has improved. Her range of motion has improved with extension and flexion. Radial pulse is 2+, sensory exam to lite touch intact - Labs CBC & Chem 7: 01/12/18 06:45 01/12/18 06:45 Labs: Microbiology - Last 24 Hours (Table) 01/11/18 09:47 Blood Culture - Preliminary Blood No Growth after 24 hours Assessment and Plan Plan: Assessment: 1. Right hand cellulitis 2. s/p cat bite right hand Plan: Symptoms have continued to improve, no orthopedic surgical intervention needed at this time Continue local wound care, warm soaks Elevate and ice often Stable via orthopedic standpoint for discharge Time with Patient: Less than 30
[2018-01-13] MEDS: SODIUM CHLORIDE 0.9% 1,000 ML IV SCH (10:23)
[2018-01-13 14:22] VITALS: BP 110/68; PULSE 59; TEMP 99
--- NOTE | 2018-01-13 14:32 | US ---
EXAMINATION TYPE: US liver DATE OF EXAM: 01/13/2018 COMPARISON: CT abdomen pelvis February 08, 2015 CLINICAL HISTORY: elevated liver enzymes. EXAM MEASUREMENTS: Liver Length: 13.3 cm Gallbladder Wall: Surgically absent CBD: 0.2 cm Right Kidney: 12.0 X 3.8 X 5.4 cm Pancreas: partially obscured by bowel gas, portions visualized wnl Liver: wnl Gallbladder: Surgically absent Evidence for sonographic Mcintyre's sign: no CBD: wnl Right Kidney: wnl IMPRESSION: Visualized liver shows no worrisome intrahepatic mass or intrahepatic ductal dilatation.
--- NOTE | 2018-01-13 15:31 | PN ---
PROGRESS NOTE DATE OF SERVICE: 01/13/2018. REASON FOR FOLLOWUP: Right hand cat bite cellulitis. INTERVAL HISTORY: The patient is currently afebrile. The right hand swelling and redness has improved. Pain is currently decreased. She is only complaining of nausea but no further vomiting. An ultrasound has been ordered for further workup. No diarrhea. EXAMINATION: Blood pressure 110/68 with a pulse of 59, temperature of 99. She is 99% on room air. General description is a middle-aged female up in the bed in no distress. Respiratory system: Unlabored breathing. Clear to auscultation anteriorly. Heart is S1, S2. Regular rate and rhythm. Abdomen soft, no tenderness. Right dorsum hand some swelling, redness has improved, minimal tenderness. DIAGNOSTIC IMPRESSION AND PLAN: 1. Patient with right hand cat bite cellulitis. The patient seems to be responding to Unasyn. She will finish therapy with oral Augmentin 875 b.i.d. for about a week. 2. Patient who did have elevated liver enzymes. Ultrasound has been ordered. We will also check a hepatitis panel. Continue supportive care. MMODL / IJN: [id number] /
--- NOTE | 2018-01-13 16:49 | P.DS ---
Providers Date of admission: 01/11/18 11:50 Expected date of discharge: 01/13/18 Attending physician: Skyler Hathaway MD Consults: 01/11/18 12:04 Consult Physician Routine Consulting Provider: Nahid Caal Consult Reason/Comments: Cat bite cellulitis right hand Do you want consulting provider notified?: Already Contacted Consult Physician Routine Consulting Provider: Nikita Reese Consult Reason/Comments: Cat bite cellulitis Do you want consulting provider notified?: Yes Primary care physician: Carla Robb MD Hospital Course: Discharge Diagnosis: Right hand cellulitis secondary to cat bite, failed outpatient treatment Transaminitis-hepatitis profile pending at time of discharge with negative liver ultrasound Vomiting, resolved Hypothyroidism GERD Depression Hospital Course: Patient is a 37-year-old female with a history of Abel thyroiditis status post thyroidectomy, anxiety, and migraines who presented to the ER with complaints of right hand swelling and redness. She had been to the ER the day previous after a cat bite and then started on Augmentin. She took 2 doses at home and the redness increases she represented to the ER. She underwent a comprehensive evaluation. Her initial vital signs were within normal limits. Initial laboratory analysis was unremarkable. She was started on Unasyn and IV fluids. She was admitted for further monitoring and care. She was seen by orthopedics was determined that she did not need any incision or drainage at this time. She was also seen by infectious disease who recommended continuing with the Unasyn. On day of discharge her swelling and redness had decreased. Her pain was being adequately controlled on Tylenol and Motrin. She was again evaluated by infectious disease who recommended an additional 7 days of Augmentin. I've instructed her to take this with food and to start taking the and inactivity. She also was noted to have increasing liver enzymes. This was felt to be likely secondary to her IV antibiotic. A liver ultrasound was performed which showed no acute process. Hepatitis panel was ordered but was still pending at time of discharge. She was determined stable for complete an outpatient course of oral antibiotics. She was also given a prescription to have repeat liver enzymes checked by Dr. Robb next week. She will follow up with Dr. Reese at in 1 week. Patient seen and examined at bedside. Pain is much decreased, redness decreased , swelling decreased. Vomiting has resolved. No diarrhea. Vital signs reviewed and stable. General: non toxic, no distress, appears at stated age Derm: Redness without warmth over dorsum of right hand with puncture wound warm , dry Head: atraumatic, normocephalic, symmetric Eyes: EOMI, no lid lag, anicteric sclera Mouth: no lip lesion, mucus membranes moist Cardiovascular: S1S2 reg, no murmur, positive posterior tibial pulse bilateral, Lungs: CTA bilateral, no rhonchi, no rales , no accessory muscle use Abdominal: soft, nontender to palpation, no guarding, no appreciable organomegaly Ext: no gross muscle atrophy, no edema, no contractures Neuro: CN II-XI grossly intact, no focal neuro deficits Psych: Alert, oriented, appropriate affect] A total of 25 minutes of time were spent preparing this complex discharge summary . Pertinent Studies: Liver ultrasound-no worrisome intrahepatic mass or intraductal dilatation Hand x-ray-no acute osseous lesion Patient Condition at Discharge: Serious Plan - Discharge Summary Discharge Rx Participant: Yes New Discharge Prescriptions: New Acetaminophen Tab [Tylenol] 650 mg PO Q6HR PRN tab PRN Reason: Mild Pain Or Fever > 100.5 Ibuprofen [Motrin] 400 mg PO Q6HR PRN tab PRN Reason: Mild Pain Or Fever > 100.5 Continue lamoTRIgine [LaMICtal] 100 mg PO BID LORazepam [Ativan] 0.5 mg PO DAILY PRN PRN Reason: Anxiety Levothyroxine Sodium [Synthroid] 150 mcg PO DAILY Escitalopram [Lexapro] 30 mg PO DAILY Discharge Medication List Escitalopram [Lexapro] 30 mg PO DAILY 01/11/18 [History] LORazepam [Ativan] 0.5 mg PO DAILY PRN 01/11/18 [History] Levothyroxine Sodium [Synthroid] 150 mcg PO DAILY 01/11/18 [History] lamoTRIgine [LaMICtal] 100 mg PO BID 01/11/18 [History] Acetaminophen Tab [Tylenol] 650 mg PO Q6HR PRN tab 01/13/18 [Rx] Ibuprofen [Motrin] 400 mg PO Q6HR PRN tab 01/13/18 [Rx] Follow up Appointment(s)/Referral(s): Carla Robb MD [Primary Care Provider] - 1-2 days Nikita Reese MD [STAFF PHYSICIAN] - 1 Week Nahid Caal MD [STAFF PHYSICIAN] - As Needed Ambulatory/Diagnostic Orders: Comprehensive Metabolic Panel [LAB.AMB] Location: None Selected Activity/Diet/Wound Care/Special Instructions: regular diet Activity as tolerated Please take your Augment twice daily for the next 7 days Repeat liver labs at your appointment with Dr. Robb Discharge Disposition: HOME SELF-CARE Pending Studies Pending Results: Acute hepatitis panel
[2018-01-14] MEDS ORDERED: PANTOPRAZOLE 40 MG TABLET PO SCH (07:30)
[2018-01-14 20:25] LABS: Hepatitis A Antibody IgM Non-Reactive (Non-Reactive); Hepatitis B Core IgM Non-Reactive (Non-Reactive)
== END 2018-01-13 16:40 | disposition home or self-care (01) | DRG 603 ==
LOC: EC 08:51 → 5MS5E 11:50 → 6PED 01-12 16:18
PROVIDERS: ADMIT Internal Medicine Geriatric Medicine; ATTEND Internal Medicine Geriatric Medicine
DX: L03.113 Cellulitis of right upper limb (principal); S61.451A Open bite of right hand, initial encounter; E89.0 Postprocedural hypothyroidism; M19.91 Primary osteoarthritis, unspecified site; G43.909 Migraine, unspecified, not intractable, without status migrainosus; F32.9 Major depressive disorder, single episode, unspecified; F41.9 Anxiety disorder, unspecified; K29.70 Gastritis, unspecified, without bleeding; K58.0 Irritable bowel syndrome with diarrhea; K21.9 Gastro-esophageal reflux disease without esophagitis; F40.240 Claustrophobia; F17.210 Nicotine dependence, cigarettes, uncomplicated; Z71.6 Tobacco abuse counseling; Z79.890 Hormone replacement therapy; Z79.899 Other long term (current) drug therapy; H40.9 Unspecified glaucoma; Z86.14 Personal history of Methicillin resistant Staphylococcus aureus infection; Z87.442 Personal history of urinary calculi; Z90.49 Acquired absence of other specified parts of digestive tract; Z90.710 Acquired absence of both cervix and uterus; W55.01XA Bitten by cat, initial encounter; W55.03XA Scratched by cat, initial encounter; Y92.009 Unspecified place in unspecified non-institutional (private) residence as the place of occurrence of the external cause; Z81.8 Family history of other mental and behavioral disorders; Z83.2 Family history of diseases of the blood and blood-forming organs and certain disorders involving the immune mechanism; Z82.49 Family history of ischemic heart disease and other diseases of the circulatory system
CPT/HCPCS: 36415; 76705; 80053; 80074; 83605; 85025; 87040; 93005; 96365; 96375; 99284

== ENCOUNTER 2020-03-17 16:07 | Emergency (ER) | payer OTHER ==
[2020-03-17 16:13] VITALS: BP 125/80; PULSE 68; RESP 18; TEMP 98.6
[2020-03-17] MEDS ORDERED: ONDANSETRON 4 MG ODT STARTER PACK 2 TAB BTL PO STA (16:33)
[2020-03-17] MEDS ORDERED: IBUPROFEN 600 MG STARTER PACK 4 TAB BTL PO STA (16:34)
[2020-03-17] MEDS ORDERED: ACETAMINOPHEN TAB 500 MG TAB PO STA (16:34)
--- NOTE | 2020-03-17 17:03 | XR ---
EXAMINATION TYPE: XR chest 1V DATE OF EXAM: 03/17/2020 COMPARISON: 05/27/2015 HISTORY: 39-year-old female with cough TECHNIQUE: Single frontal view of the chest is obtained. FINDINGS: Cardiomediastinal silhouette, aorta, and pulmonary vasculature within normal limits. No consolidation or pleural effusion. IMPRESSION: No acute cardiopulmonary process.
--- NOTE | 2020-03-17 17:09 | ED ---
URI HPI - General Chief Complaint: Upper Respiratory Infection Stated Complaint: Needs Covid testing Time Seen by Provider: 03/17/20 16:12 Source: patient, RN notes reviewed, old records reviewed Mode of arrival: ambulatory - History of Present Illness Initial Comments: Patient is a 31-year-old female who presents emergency department today concern for possible co-vivid 19 infection. She has had a sore throat increased cough congestion fatigue and nausea for the past 3 days. She reports that the nausea with that today she cannot take her normal medications. Patient states that she's had no recorded at home fevers or chills. She states that she hasn't had any Tylenol Motrin or other medications to help with symptoms at this time. 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 - Related Data Home Medications Medication Instructions Recorded Confirmed Escitalopram [Lexapro] 30 mg PO DAILY 01/11/18 01/11/18 LORazepam [Ativan] 0.5 mg PO DAILY PRN 01/11/18 01/11/18 Levothyroxine Sodium [Synthroid] 150 mcg PO DAILY 01/11/18 01/11/18 lamoTRIgine [LaMICtal] 100 mg PO BID 01/11/18 01/11/18 Previous Rx's Medication Instructions Recorded Acetaminophen Tab [Tylenol] 650 mg PO Q6HR PRN tab 01/13/18 Ibuprofen [Motrin] 400 mg PO Q6HR PRN tab 01/13/18 Acetaminophen Tab [Tylenol] 650 mg PO Q6H #20 tab 03/17/20 Albuterol Inhaler [Ventolin Hfa 1 puff INHALATION RT-QID #1 inhaler 03/17/20 Inhaler] Ondansetron Odt [Zofran Odt] 4 mg PO Q8HR PRN #12 tab 03/17/20 predniSONE 50 mg PO DAILY #5 tablet 03/17/20 Allergies Allergy/AdvReac Type Severity Reaction Status Date / Time No Known Allergies Allergy Verified 03/17/20 16:11 Review of Systems ROS Statement: Those systems with pertinent positive or pertinent negative responses have been documented in the HPI. ROS Other: All systems not noted in ROS Statement are negative. Past Medical History Past Medical History: Eye Disorder, GERD/Reflux, Osteoarthritis (OA), Thyroid Disorder Additional Past Medical History / Comment(s): MIGRAINES, multiple kidney stones in past, ovarian cyst, GLAUCOMA, 3 BULGING DISCS.IBS,VERTIGO History of Any Multi-Drug Resistant Organisms: None Reported, MRSA Date of last positivie culture/infection: 2009 MDRO Source:: SPUTUM/RESPITORY Past Surgical History: Adenoidectomy, Cholecystectomy, Hysterectomy, Orthopedic Surgery, Tonsillectomy, Tubal Ligation Additional Past Surgical History / Comment(s): JAW SURGERY DONE FOR TMJ; SINUS SURGERY FOR DEVIATED SEPTUM; BUNIONECTOMY AND CADAVIER BONE GRAFTS; THYROIDECTOMY(PT STATED THYROID WAS 5 TIMES NORMAL SIZE AND WRAPPED AROUND ESOPHAGUS; OVARIAN CYST REMOVED., LASER SX RT EYE FOR GLAUCOMA, Additional Past Anesthesia/Blood Transfusion Reaction / Comment(s): CLAUSTER PHOBIA Past Psychological History: Anxiety, Depression Smoking Status: Current some day smoker Past Alcohol Use History: None Reported Past Drug Use History: Marijuana - Past Family History Mother Additional Family Medical History / Comment(s): BIPOLAR Father Family Medical History: AFIB, Deep Vein Thrombosis (DVT), Eye Disorder, Hypertension General Exam - General Exam Comments Initial Comments: 39-year-old female. No distress. General appearance: alert, in no apparent distress Head exam: Present: atraumatic, normocephalic, normal inspection Eye exam: Present: normal appearance, PERRL, EOMI. Absent: scleral icterus, conjunctival injection, periorbital swelling ENT exam: Present: normal exam, mucous membranes moist Neck exam: Present: normal inspection. Absent: tenderness, meningismus, lymphadenopathy Respiratory exam: Present: wheezes. Absent: normal lung sounds bilaterally, respiratory distress, rales, rhonchi, stridor Cardiovascular Exam: Present: regular rate, normal rhythm, normal heart sounds. Absent: systolic murmur, diastolic murmur, rubs, gallop, clicks GI/Abdominal exam: Present: soft, normal bowel sounds. Absent: distended, guarding, rebound, rigid Extremities exam: Present: normal inspection, full ROM, normal capillary refill. Absent: tenderness, pedal edema, joint swelling, calf tenderness Back exam: Present: normal inspection Neurological exam: Present: alert, oriented X3, CN II-XII intact Psychiatric exam: Present: normal affect, normal mood Skin exam: Present: warm, dry, intact, normal color. Absent: rash Course Vital Signs 03/17/20 16:10 Temperature 98.6 F Pulse Rate 68 Respiratory 18 Rate Blood Pressure 125/80 O2 Sat by Pulse 98 Oximetry Medical Decision Making - Medical Decision Making 31-year-old female presents emergency room multiple complaints including upper respiratory congestion cough sore throat as well as nausea. She is concerned f or co-vivid 19 infection. She is a smoker. Discussed the importance of smoking cessation for 5 minutes. Patient's chest x-ray was reviewed and negative for acute process. Patient was given medications help with symptoms including Zofran for nausea Motrin Tylenol. Discussed the Patient on steroids and albuterol inhaler home. Discussed return parameters closely C follow-up and to self quarantined until results of the test. - Radiology Data Radiology results: report reviewed Chest x-ray was reviewed and negative for any acute process. Disposition Clinical Impression: Suspected 2019 novel coronavirus infection, Bronchitis, Nausea Disposition: HOME SELF-CARE Condition: Good Instructions (If sedation given, give patient instructions): Upper Respiratory Infection (ED), Acute Nausea and Vomiting (ED) Additional Instructions: Patient should take the medications as prescribed. He needed to self quarantine until results of the testing is completed. Return to the emergency department if any alarming signs or symptoms occur. Rest, increase fluid intake. HAve healthy diet of fruits, and vegetables and quit smoking. Prescriptions: predniSONE 50 mg PO DAILY #5 tablet Acetaminophen Tab [Tylenol] 650 mg PO Q6H #20 tab Albuterol Inhaler [Ventolin Hfa Inhaler] 1 puff INHALATION RT-QID #1 inhaler Ondansetron Odt [Zofran Odt] 4 mg PO Q8HR PRN #12 tab PRN Reason: Nausea Is patient prescribed a controlled substance at d/c from ED?: No Referrals: Ary Dugan MD [Primary Care Provider] - 1-2 days Time of Disposition: 17:17
== END 2020-03-17 17:40 | disposition home or self-care (01) ==
LOC: EC 16:07
DX: J40 Bronchitis, not specified as acute or chronic (principal); R11.0 Nausea; E07.9 Disorder of thyroid, unspecified; F41.9 Anxiety disorder, unspecified; F32.9 Major depressive disorder, single episode, unspecified; F17.200 Nicotine dependence, unspecified, uncomplicated; Z79.899 Other long term (current) drug therapy; Z79.890 Hormone replacement therapy; Z20.828 Contact with and (suspected) exposure to other viral communicable diseases
CPT/HCPCS: 71045; 99284; 99406; U0003; S0119

== ENCOUNTER → 2021-04-12 | Outpatient (CLI) | payer OTHER ==
--- NOTE | 2021-04-12 13:58 | XR ---
EXAMINATION TYPE: XR lumbar spine with bend/flex, 6 views DATE OF EXAM: 04/12/2021 Comparison: None Clinical History: 40-year-old female M54.5 Findings: 5 lumbar type vertebral bodies. Cholecystectomy clips. 1.0 cm left renal calculus. Facet arthropathy mid to lower lumbar spine. Vertebral body heights are preserved. Alignment is maintained. No dynamic subluxations in flexion or extension. Mild disc space narrowing at L5-S1. Impression: Facet arthropathy mid to lower lumbar spine. No vertebral compression collapse or malalignment. No ev idence for dynamic subluxation with flexion or extension. Incidental 1.0 cm left renal calculus.
--- NOTE | 2021-04-12 14:00 | XR ---
EXAMINATION TYPE: XR pelvis AP view DATE OF EXAM: 04/12/2021 COMPARISON: NONE HISTORY: 40-year-old female by 4.5 FINDINGS: There is a linear density at the right pelvis, possibly Essure device, clinically correlate. Tiny pel kartik phleboliths. There is degenerative labral ossification or acetabulum bilaterally. Hip joint space maintained on grover th sides. SI joints appear symmetric and intact as is the pubic symphysis. IMPRESSION: Neither os acetabuli versus degenerative labral ossification on both sides. No acute osseous abnormal ity seen. Linear density in the right side of the pelvis could be external artifact or retained forei gn body such as an Essure device. Clinically correlate.
== END | disposition home or self-care (01) ==
LOC: RADXRMAIN 09:31
PROVIDERS: ATTEND Orthopaedic Surgery
DX: M47.816 Spondylosis without myelopathy or radiculopathy, lumbar region (principal)
CPT/HCPCS: 72114; 72170

== ENCOUNTER 2021-11-13 11:24 | Emergency (ER) | payer BC, OTHER ==
[2021-11-13 11:51] VITALS: RESP 20; TEMP 97.8
--- NOTE | 2021-11-13 13:15 | XR ---
EXAMINATION TYPE: XR chest 2V DATE OF EXAM: 11/13/2021 COMPARISON: 03/17/2020 INDICATION: Chest pain TECHNIQUE: Frontal and lateral views of the chest are obtained. FINDINGS: The heart size is normal. The pulmonary vasculature is normal. The lungs are clear. IMPRESSION: 1. No acute pulmonary process.
[2021-11-13] MEDS ORDERED: predniSONE 50 MG TAB PO STA (14:30)
[2021-11-13] MEDS ORDERED: ALBUTEROL HFA INHALER INHALATION STA (14:30)
--- NOTE | 2021-11-13 15:53 | ED ---
General Adult HPI - General Chief complaint: Upper Respiratory Infection Stated complaint: Cough/SOB/Chest Discomfort Time Seen by Provider: 11/13/21 14:21 Source: patient, RN notes reviewed, old records reviewed Mode of arrival: ambulatory Limitations: no limitations - History of Present Illness Initial comments: Patient is a 41-year-old female with past history remarkable for hypothyroidism, chronic tobacco use who presents emergency Department complaining of a two-week history of minimally productive cough. States she is coughing up increased sp utum over this time and it was streaked with blood yesterday which prompted her to come to the emergency prompt today for evaluation. Took 5 home Covid test at home which all negative. Denies any fevers recently but did have a fever last week. Denies any nausea, vomiting, diarrhea. Tolerating oral intake. Endorses intermittent chest discomfort, primarily only when coughing and it got worse re cently as is been 2 weeks of coughing. Presents for further evaluation at this time.No history of blood clots in herself. History of blood clots and remote family members. Denies any lower extremity swelling. Denies shortness of breath. - Related Data Home Medications Medication Instructions Recorded Confirmed Escitalopram [Lexapro] 30 mg PO DAILY 01/11/18 01/11/18 LORazepam [Ativan] 0.5 mg PO DAILY PRN 01/11/18 01/11/18 Levothyroxine Sodium [Synthroid] 150 mcg PO DAILY 01/11/18 01/11/18 lamoTRIgine [LaMICtal] 100 mg PO BID 01/11/18 01/11/18 Previous Rx's Medication Instructions Recorded Acetaminophen Tab [Tylenol] 650 mg PO Q6HR PRN tab 01/13/18 Ibuprofen [Motrin] 400 mg PO Q6HR PRN tab 01/13/18 Acetaminophen Tab [Tylenol] 650 mg PO Q6H #20 tab 03/17/20 Albuterol Inhaler [Ventolin Hfa 1 puff INHALATION RT-QID #1 inhaler 03/17/20 Inhaler] Ondansetron Odt [Zofran Odt] 4 mg PO Q8HR PRN #12 tab 03/17/20 predniSONE 50 mg PO DAILY #5 tablet 03/17/20 Albuterol Inhaler [Ventolin Hfa 1 puff INHALATION RT-TID #8 gm 11/13/21 Inhaler] Azithromycin [Zithromax Z Pack] 1 tab PO DIRECTED #6 tab 11/13/21 predniSONE [Deltasone] 40 mg PO DAILY 5 Days #10 tab 11/13/21 Allergies Allergy/AdvReac Type Severity Reaction Status Date / Time No Known Allergies Allergy Verified 11/13/21 11:51 Review of Systems ROS Statement: Those systems with pertinent positive or pertinent negative responses have been documented in the HPI. Review of Systems: CONST: Denies fever EYES: Denies blurry vision ENT: Denies nasal congestion C/V: Denies Chest pain RESP: Endorses cough GI: Denies abdominal pain : Denies dysuria SKIN: Denies rash. MSK: Denies joint pain. NEURO: Denies headache ROS Other: All systems not noted in ROS Statement are negative. Past Medical History Past Medical History: Eye Disorder, GERD/Reflux, Osteoarthritis (OA), Thyroid Disorder Additional Past Medical History / Comment(s): MIGRAINES, multiple kidney stones in past, ovarian cyst, GLAUCOMA, 3 BULGING DISCS.IBS,VERTIGO History of Any Multi-Drug Resistant Organisms: None Reported, MRSA Date of last positivie culture/infection: 2009 MDRO Source:: SPUTUM/RESPITORY Past Surgical History: Adenoidectomy, Cholecystectomy, Hysterectomy, Orthopedic Surgery, Tonsillectomy, Tubal Ligation Additional Past Surgical History / Comment(s): JAW SURGERY DONE FOR TMJ; SINUS SURGERY FOR DEVIATED SEPTUM; BUNIONECTOMY AND CADAVIER BONE GRAFTS; THYROIDECTOMY(PT STATED THYROID WAS 5 TIMES NORMAL SIZE AND WRAPPED AROUND ESOPHAGUS; OVARIAN CYST REMOVED., LASER SX RT EYE FOR GLAUCOMA, Additional Past Anesthesia/Blood Transfusion Reaction / Comment(s): CLAUSTERPHOBIA Past Psychological History: Anxiety, Depression Smoking Status: Current some day smoker Past Alcohol Use History: None Reported Past Drug Use History: Marijuana - Past Family History Mother Additional Family Medical History / Comment(s): BIPOLAR Father Family Medical History: AFIB, Deep Vein Thrombosis (DVT), Eye Disorder, Hypertension General Exam - General Exam Comments Initial Comments: General: Appears in no acute distress. HEAD: Normal with no signs of head trauma. EYES: PERRLA, EOMI, conjunctiva normal, no discharge. ENT: Hearing grossly intact, normal oropharynx. RESPIRATORY: Mild end expiratory wheezing. No increased work of breathing. No hypoxia. C/V: Regular rate and rhythm. S1 and S2 auscultated, no edema, peripheral pulses 2+ and intact throughout ABD: Abd is soft, nontender, nondistended EXT: Normal range of motion, no obvious deformity SKIN: No rashes or lesions observed on exposed skin. NEURO: Alert and oriented 4. He Limitations: no limitations Course Vital Signs 11/13/21 11/13/21 11:48 14:08 Temperature 97.8 F Pulse Rate 68 Respiratory 20 20 Rate Blood Pressure 114/76 O2 Sat by Pulse 99 Oximetry Medical Decision Making - Medical Decision Making Based on the patient's presentation and physical exam, I do believe she is likely experiencing a bronchospasm and possible early COPD that has been previously undiagnosed. Also appears to have bronchitis. We discussed obtaining laboratory studies and she declines at this time. Screening EKG was obtained in triage and shows no acute ischemic process. I did recommend a chest x-ray as well as viral signs which she consented to. She'll be given prednisone as well as in treatment for mild bronchospasm. She was in agreement this plan. Chest x-ray showed no acute cardiopulmonary process. Viral swabs were negative. I discussed results with the patient. She is likely experiencing a bronchitis with bronchospastic process. She'll be given a Z-Tino as well as home prescription for prednisone for 5 days as well as albuterol inhaler. Strict return precautions were discussed. She was in agreement with this plan. I will provide the patient with a prescription for albuterol inhaler, prednisone, Z-Tino. I instructed the patient to follow up with their PCP in the next 3 days. I explained that the patient should return to the emergency department if they experience any worsening symptoms. Strict return precautions were discussed with the patient. The patient expressed understanding of these instructions. I answered all questions that the patient had. The patient was discharged home in good condition with their prescriptions and follow up information. - Lab Data Lab Results 11/13/21 11/13/21 Range/Units 14:49 14:49 Coronavirus (PCR) Not Detected (Not Detectd) Influenza Type A RNA Not Detected (Not Detectd) Influenza Type B (PCR) Not Detected (Not Detectd) - EKG Data -: EKG Interpreted by Me EKG Comments: 12-lead Electrocardiogram Interpretation Note EKG was reviewed and interpreted by myself. 12-lead ECG performed at 1140 is interpreted by me as revealing normal sinus rhythm at a rate of 59 beats per minute. [place] is normal. TN interval is 170 ms, QRS duration is 79 ms, QTc is 381 ms.. There were no ST or T wave abnormalities to suggest myocardial ischemia or injury. R wave progression across the precordium was satisfactory. By my interpretation this EKG is non-diagnostic for acute ischemia. Disposition Clinical Impression: Bronchitis, Bronchospasm Disposition: HOME SELF-CARE Condition: Good Instructions (If sedation given, give patient instructions): Acute Bronchitis (ED) Prescriptions: predniSONE [Deltasone] 40 mg PO DAILY 5 Days #10 tab Albuterol Inhaler [Ventolin Hfa Inhaler] 1 puff INHALATION RT-TID #8 gm Azithromycin [Zithromax Z Pack] 1 tab PO DIRECTED #6 tab Is patient prescribed a controlled substance at d/c from ED?: No Referrals: John Laguerre MD [Primary Care Provider] - 1-2 days Time of Disposition: 15:44
[2021-11-13 15:56] VITALS: BP 126/74; PULSE 86
== END 2021-11-13 15:55 | disposition home or self-care (01) ==
LOC: EC 11:24
DX: J40 Bronchitis, not specified as acute or chronic (principal); J98.01 Acute bronchospasm; E03.9 Hypothyroidism, unspecified; F17.200 Nicotine dependence, unspecified, uncomplicated; Z79.890 Hormone replacement therapy; Z20.822 Contact with and (suspected) exposure to COVID-19
CPT/HCPCS: 94640; 93005; 87502; 87635; 71046; 99285; J7512

== ENCOUNTER → 2023-02-07 | Outpatient (CLI) | payer BC ==
--- NOTE | 2023-02-07 16:15 | XR ---
EXAMINATION TYPE: XR shoulder complete 3 views RT DATE OF EXAM: 02/07/2023 Comparison: None Clinical History: 42-year-old female M25.511 SHOULDER PAIN Findings: AC joint is intact. Subacromial space is preserved. No acute fracture, subluxation, dislocation seen. Impression: No acute osseous abnormality seen.
== END | disposition home or self-care (01) ==
LOC: LABWHC1 11:08
PROVIDERS: ATTEND Internal Medicine
DX: M25.511 Pain in right shoulder (principal)

== ENCOUNTER → 2023-12-13 | Outpatient (CLI) | payer BC ==
[2023-12-13 15:18] LABS: Basophils # (A) 0.03 X 10*3/uL (0.00-0.10); Basophils % (A) 0.6 %; Eosinophils # (A) 0 X 10*3/uL (0.04-0.35); Eosinophils % (A) 0 %; HCT 41.9 % (37.2-46.3); HGB 13.9 g/dL (12.0-15.0); Lymphocytes # (A) 1.96 X 10*3/uL (0.90-5.00); Lymphocytes % (A) 41.5 %; MCH 32.2 pg (27.0-32.0); MCHC 33.2 g/dL (32.0-37.0); Mean Platelet Volume 10.2 FL (9.5-12.2); Monocytes # (A) 0.39 X 10*3/uL (0.20-1.00); Monocytes % (A) 8.3 %; NRBC Per 100 WBC 0 X 10*3/uL (0.00-0.01); Neutrophils # (A) 2.33 X 10*3/uL (1.80-7.70); Neutrophils % (A) 49.4 %; Platelet Count 262 X 10*3/uL (140-440); RBC 4.32 X 10*6/uL (4.10-5.20); RDW 12.1 % (11.5-14.5); WBC 4.72 X 10*3/uL (4.50-10.00)
[2023-12-13 15:56] LABS: ALT 16 U/L (8-44); AST 18 U/L (13-35); Albumin 4.4 g/dL (3.8-4.9); Alkaline Phosphatase 50 U/L (41-126); BUN/Creat Ratio 14.12 Ratio (12.00-20.00); Blood Urea Nitrogen 11.3 mg/dL (9.0-27.0); Calcium 9.1 mg/dL (8.7-10.3); Carbon Dioxide 24.7 mmol/L (21.6-31.8); Chloride 106 mmol/L (96-109); Chol/HDL Ratio 3.32 Ratio; Globulin 2.2 g/dL (1.6-3.3); Glucose 96 mg/dL (70-110); LDL Cholesterol,Calculated 120.2 mg/dL (0.0-131.0); Magnesium 2.2 mg/dL (1.5-2.4); Potassium 4.6 mmol/L (3.5-5.5); Sodium 141 mmol/L (135-145); T4, Free (Free Thyroxine) 1.54 ng/dL (0.80-1.80); Total Bilirubin 0.6 mg/dL (0.3-1.2); Total Protein 6.6 g/dL (6.2-8.2); Uric Acid 3.7 mg/dL (2.9-7.7); VLDL Calculation 15.96 mg/dL (5.00-40.00)
== END | disposition home or self-care (01) ==
LOC: LABWHC1 12:13
PROVIDERS: ATTEND Internal Medicine
DX: Z00.00 Encounter for general adult medical examination without abnormal findings (principal); E03.9 Hypothyroidism, unspecified; E55.9 Vitamin D deficiency, unspecified; E53.8 Deficiency of other specified B group vitamins; N20.0 Calculus of kidney
CPT/HCPCS: 36415; 80053; 80061; 82306; 82607; 82746; 83735; 84439; 84443; 84550; 85025

== ENCOUNTER 2024-09-23 19:27 | Emergency (ER) | payer BC ==
[2024-09-23 20:00] VITALS: RESP 18; TEMP 98.2
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
[2024-09-23 22:03] VITALS: BP 138/86; PULSE 72
== END 2024-09-23 22:05 | disposition home or self-care (01) ==
LOC: EC 19:27
DX: T24.131A Burn of first degree of right lower leg, initial encounter (principal); T31.0 Burns involving less than 10% of body surface; F17.200 Nicotine dependence, unspecified, uncomplicated; X16.XXXA Contact with hot heating appliances, radiators and pipes, initial encounter
CPT/HCPCS: 99283

== ENCOUNTER → 2024-12-23 | Outpatient (CLI) | payer BC ==
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
--- NOTE | 2024-12-23 17:31 | MM ---
Reason for Exam: Screening (asymptomatic). Baseline mammogram. Patient History: Menarche at age 13. First Full-Term at age 21. Hysterectomy at age 31. Paternal grandmother had breast cancer. Mother had ovarian cancer. Risk Values: Chayito 5 year model risk: 0.6%. NCI Lifetime model risk: 8.8%. Prior Study Comparison: Patient's first Mammogram. Tissue Density: The breasts are heterogeneously dense, which may obscure small masses. Findings: Analyzed By CAD. Regional punctate calcifications superior aspect of the right breast are typically benign. No significant mass, suspicious microcalcification, or other discrete abnormality is seen. Overall Assessment: Benign, BI-RAD 2 Management: Screening Mammogram of both breasts in 1 year. Patient should continue monthly self-breast exams. A clinical breast exam by your physician is recommended on an annual basis. This exam should not preclude additional follow-up of suspicious palpable abnormalities. Note on Chayito scores and lifetime risk: 1. A Chayito score greater than 3% is considered moderate risk. If this is the case, consider specialist referral to assess eligibility for a risk reducing agent. 2. If overall lifetime risk for the development of breast cancer is 20% or higher, the patient may qualify for future screening with alternating mammogram and breast MRI. [facility], , 12/23/2024 5:28 PM. Electronically signed and approved by: Daniel Machado M.D. Radiologist
== END | disposition home or self-care (01) ==
LOC: RADUSWWP 15:29
PROVIDERS: ATTEND Internal Medicine
DX: Z12.31 Encounter for screening mammogram for malignant neoplasm of breast (principal); R92.333 Mammographic heterogeneous density, bilateral breasts; Z80.3 Family history of malignant neoplasm of breast
CPT/HCPCS: 76536; 77063; 77067